=== PATIENT | male | born 1935 | race Caucasian/White ===

== ENCOUNTER → 2017-07-24 | Outpatient (CLI) | payer OTHER ==
[~2017-07-24] MED LIST: AMLO10 PO; AZELASTINE HCL6 ML BOTHEYES; CLOB.05TO TOP; CYAN500 SC; GAVILAX17 GM PO; HYDACE5 PO; HYDCHL12.5 PO; LEVFLO500 PO; LOSA50 PO; MELO7.5 PO; OMEP20ER PO; PRED20 PO; SILD25T PO; SILD50TA PO; TRAZ50 PO; ZOLP5 PO; [UNRECOGNIZED DRUG - OTHER] OP
== END | disposition home or self-care (01) ==
LOC: LAB 06:40 → LAB SHORT 06:40 → LAB FUT 07-23 14:45
DX: R05 Cough (principal)
CPT/HCPCS: 87070; 87205

== ENCOUNTER 2018-08-20 12:06 | Inpatient (IN) | payer OTHER ==
[~2018-08-20] VITALS: Ht 167.6 cm; Wt 57.1 kg
[~2018-08-20 12:06] MED LIST changes: +CYAN1000I IM; -CYAN500 SC; -LOSA50 PO; +LOSARTAN POTAS100 MG PO; -MELO7.5 PO; +Mobic15 MG PO; -OMEP20ER PO; +OMEPRAZOLE MAGN20 MG PO; -TRAZ50 PO
[2018-08-20] MEDS ORDERED: TRAZ50 PO (13:35)
[2018-08-20 13:51] LABS: BASOPHILS ABSOLUTE AUTO 0.02 K/mm3 (0.00-0.23); BASOPHILS PERCENT AUTO 0 % (0-2); EOSINOPHILS ABSOLUTE AUTO 0.08 K/mm3 (0.00-0.68); EOSINOPHILS PERCENT AUTO 1 % (0-6); Hemoglobin 13.3 g/dL (13.5-17.5); IMMATURE GRAN ABSOLUTE AUTO 0.03 K/mm3 (0.00-0.10); IMMATURE GRAN PERCENT AUTO 0 % (0-1); LYMPHOCYTES ABSOLUTE AUTO 0.84 K/mm3 (0.84-5.20); LYMPHOCYTES PERCENT AUTO 12 % (21-46); MONOCYTES PERCENT AUTO 7 % (4-13); Mean Corpuscular HGB Conc 33.3 g/dL (31.5-36.5); Mean Corpuscular Volume 93 fL (80-100); Mean Platelet Volume 10.4 fL (9.1-12.4); NEUTROPHILS ABSOLUTE AUTO 5.56 K/mm3 (1.96-9.15); NEUTROPHILS PERCENT AUTO 79 % (41-73); Platelet Count 160 K/mm3 (150-400); RDW Coefficient Variation 12.5 % (11.7-14.2); RDW Standard Deviation 43.2 fL (35.1-46.3); Red Blood Cell Count 4.29 M/mm3 (4.30-5.90); White Blood Cell Count 7.03 K/mm3 (4.00-11.30)
[2018-08-20 14:15] LABS: Alanine Aminotransfer (ALT/SGP 12 U/L (12-78); Albumin, Blood 3.8 g/dL (3.4-5.0); Albumin/Globulin Ratio 1.3 (0.8-1.8); Alk Phos 109 U/L (50-136); Anion Gap 8 mmol/L (6-16); Aspartate Aminotrans (AST/SGOT 20 U/L (12-37); Bilirubin, Total 0.7 mg/dL (0.1-1.0); Blood Urea Nitrogen 13 mg/dL (8-24); Bun/Creatinine Ratio 11.4 (12.0-20.0); CO2, Blood 25 mmol/L (21-32); Calcium, Blood 9.1 mg/dL (8.5-10.1); Chloride, Blood 110 mmol/L (98-108); Creatinine, Blood 1.14 mg/dL (0.60-1.20); Glomerular Filtration Rate >60 (60-); Glucose, Blood 91 mg/dL (70-99); Potassium, Blood 3.3 mmol/L (3.5-5.5); Sodium, Blood 143 mmol/L (136-145); Total Protein, Blood 6.8 g/dL (6.4-8.2)
--- NOTE | 2018-08-20 19:12 | NUR ---
ARRIVAL TO UNIT ARRIVAL TO UNIT AT APPROX 1700. THIS RN TOOK REPORT FROM ER NURSE AND THEN REPORTED TO DAVE RN TO ASSUME CARE. THIS RN REPOSITIONED PT'S LEFT LEG ON PILLOWS FOR COMFORT AND MEDICATED WITH IV DILAUDID X1. AT BEDSIDE FOR SUPPORT. ORIENTED TO ROOM AND CALL LIGHT.
[2018-08-21 04:17] LABS: Hematocrit 36.7 % (37.0-53.0); Mean Corpuscular HGB 30.9 pg (26.0-34.0); Mean Corpuscular HGB Conc 32.7 g/dL (31.5-36.5); Mean Corpuscular Volume 95 fL (80-100); Platelet Count 135 K/mm3 (150-400); RDW Coefficient Variation 12.4 % (11.7-14.2); RDW Standard Deviation 43.4 fL (35.1-46.3); Red Blood Cell Count 3.88 M/mm3 (4.30-5.90); White Blood Cell Count 7.06 K/mm3 (4.00-11.30)
[2018-08-21 04:43] LABS: Anion Gap 8 mmol/L (6-16); Blood Urea Nitrogen 12 mg/dL (8-24); Bun/Creatinine Ratio 11.9 (12.0-20.0); CO2, Blood 25 mmol/L (21-32); Calcium, Blood 8.6 mg/dL (8.5-10.1); Chloride, Blood 110 mmol/L (98-108); Creatinine, Blood 1.01 mg/dL (0.60-1.20); Glomerular Filtration Rate >60 (60-); Glucose, Blood 93 mg/dL (70-99); Potassium, Blood 3.8 mmol/L (3.5-5.5); Sodium, Blood 143 mmol/L (136-145)
--- NOTE | 2018-08-21 07:28 | NUR ---
SHIFT SUMMARY PT A&O X4 T/O SHIFT. NO ACUTE CHANGES. SPLINT WITH NAY TO LLE; ELEVATED; PAIN MANGED PER EMAR. PT DENIED PAIN AT REST T/O SHIFT. PT REPOSITIONED T/O SHIFT PT TOLERATED. SPLINT TO R MIDDLE FINGER. CALL LIGHT IN REACH; PT DEMONSTRATES USE. PT CALLED FOR URINAL. SIDE RAILS X3 AND BED ALARM FOR SAFETY. PT AT BEDSIDE THIS AM. REPORT GIVEN TO DAY SHIFT RN.
--- NOTE | 2018-08-21 09:46 | NUR ---
DR EASLEY HERE. FAMILY PRESENT.
--- NOTE | 2018-08-21 13:32 | NUR ---
DR AMANDA HERE TO SEE PT. FAMILY PRESENT.
--- NOTE | 2018-08-21 19:40 | NUR ---
SHIFT SUMMARY PT EATING AND DRINKING WITH ENC. PT BEEN ASSISTED WITH ADL'S PRN. ASHLEY GALDAMEZ IN TO SEE PT TODAY. PT BEEN REPOSITIONED, PT REPORTED COMF AT TIMES AND REPORTED DID NOT WANT TO BE REPOSITIONED. PT LLE WITH PILLOWS. FAMILY IN ROOM MOST OF DAY.
--- NOTE | 2018-08-22 04:32 | NUR ---
SHIFT SUMMARY: PT RESTING MOST OF SHIFT. PAIN MANAGED WITH 0.5MG OF DILAUDID. NAY WRAP TO LEG INTACT. PT ABLE TO WIGGLE TOES. CAP REFILL WNL. VOIDING IN URINAL. DC PO. PLAN FOR PT TO WORK WITH PHYSICAL THERAPY TODAY.
--- NOTE | 2018-08-22 18:16 | NUR ---
SUMMARY PATIENT REPORTS HE HAD A MUCH BETTER DAY TODAY COMPARED TO YESTERDAY. PATIENTS PAIN 8-10 WITH ACTIVITY AND 2-4 AT REST. PATIENT DENIES NEED FOR PAIN MED AT THIS TIME. PATIENT ANTICIPATES DISCHARGE TO SNF IF BED AVAILABLE TOMORROW. PATIENTS AT BEDSIDE MUCH OF SHIFT AND ATTENTIVE TO PATIENT.
--- NOTE | 2018-08-23 11:37 | NUR ---
TRANSPORT ARRANGED FOR 1330 TO [facility]. NOTIFIED PATIENT AND HIS OF TRANSFER TIME
--- NOTE | 2018-08-23 12:48 | NUR ---
PATIENT MEDICATED WITH ZOFRAN PER REQUEST. PATIENT STATES HE BELIEVES HE IS A BIT NAUSEATED HE IS PASSING MORE GAS AND FEELS LIKE HE WILL HAVE A BM SOON PATIENT DECLINES PRUNE JUICE OR FURTHER BOWEL REGIME AT THIS TIME
--- NOTE | 2018-08-23 13:18 | NUR ---
REPORT PHONRD TO LAURIE AT [facility]
--- NOTE | 2018-08-23 15:17 | NUR ---
discharged with [facility] via wheelchair to transport to [facility] rehab patients present at time of transfer
--- NOTE | 2018-08-23 16:49 | NUR ---
RECEIVED PHONE CALL FROM [facility] STATING THAT A HARD RX IS NEEDEDFOR PATIENTS AMBIEN. DISCHARGING PHYSICIAN MAY CALL IN RX TO PHONE [phone]. SPO[address] EASLEY WHO WILL PHONE IN PRESCRIPTION
== END 2018-08-23 15:15 | DRG 534 ==
LOC: ER 12:06 → SURS 14:19
PROVIDERS: Emergency Medicine; ADMIT Hospitalist
DX: S72.455A Nondisplaced supracondylar fracture without intracondylar extension of lower end of left femur, initial encounter for closed fracture (principal); M97.12XA Periprosthetic fracture around internal prosthetic left knee joint, initial encounter; I10 Essential (primary) hypertension; W10.9XXA Fall (on) (from) unspecified stairs and steps, initial encounter; K21.9 Gastro-esophageal reflux disease without esophagitis; M19.90 Unspecified osteoarthritis, unspecified site; K59.00 Constipation, unspecified; G47.00 Insomnia, unspecified; Z87.891 Personal history of nicotine dependence
CPT/HCPCS: 29505; 73140; 73560-LT; 80048; 80053; 85025; 85027; 93005; 93010; 96374-59; 96376-59; 97110; 97162; 97166; 97530; 99285-25; A9270-GY; J1170; J2405; J3480

== ENCOUNTER → 2019-10-20 | Outpatient (CLI) | payer OTHER ==
[~2019-10-20] MED LIST changes: +TRAZ50 PO
== END | disposition home or self-care (01) ==
LOC: PLD 12:17 → LAB SHORT 12:17
DX: C44.329 Squamous cell carcinoma of skin of other parts of face (principal)
CPT/HCPCS: 88305

== ENCOUNTER 2020-03-08 00:19 | Inpatient (IN) | payer OTHER ==
[~2020-03-08] VITALS: Ht 172.7 cm; Wt 60.5 kg
[2020-03-08 02:35] LABS: BASOPHILS ABSOLUTE AUTO 0.05 K/mm3 (0.00-0.23); BASOPHILS PERCENT AUTO 1 % (0-2); EOSINOPHILS ABSOLUTE AUTO 0.13 K/mm3 (0.00-0.68); EOSINOPHILS PERCENT AUTO 1 % (0-6); Hematocrit 41.6 % (37.0-53.0); Hemoglobin 13.2 g/dL (13.5-17.5); IMMATURE GRAN ABSOLUTE AUTO 0.02 K/mm3 (0.00-0.10); IMMATURE GRAN PERCENT AUTO 0 % (0-1); LYMPHOCYTES ABSOLUTE AUTO 1.72 K/mm3 (0.84-5.20); LYMPHOCYTES PERCENT AUTO 18 % (21-46); MONOCYTES PERCENT AUTO 8 % (4-13); Mean Corpuscular HGB 30.8 pg (26.0-34.0); Mean Corpuscular HGB Conc 31.7 g/dL (31.5-36.5); Mean Corpuscular Volume 97 fL (80-100); Mean Platelet Volume 10.1 fL (9.1-12.4); NEUTROPHILS PERCENT AUTO 72 % (41-73); Platelet Count 191 K/mm3 (150-400); RDW Coefficient Variation 13.7 % (11.7-14.2); RDW Standard Deviation 49.1 fL (35.1-46.3); Red Blood Cell Count 4.29 M/mm3 (4.30-5.90); White Blood Cell Count 9.82 K/mm3 (4.00-11.30)
[2020-03-08 02:55] LABS: Albumin, Blood 3.5 g/dL (3.4-5.0); Albumin/Globulin Ratio 1.2 (0.8-1.8); Bilirubin, Total 0.5 mg/dL (0.1-1.0); Bun/Creatinine Ratio 14.4 (12.0-20.0); Calcium, Blood 9.5 mg/dL (8.5-10.1); Creatinine, Blood 4.94 mg/dL (0.60-1.20); Globulin, Blood 2.9 g/dL (2.2-4.0); Magnesium, Blood 2.6 mg/dL (1.6-2.4); Potassium, Blood 5.7 mmol/L (3.5-5.5); Total Protein, Blood 6.4 g/dL (6.4-8.2); Troponin I 0.021 ng/mL (0.000-0.040)
[2020-03-08 10:00] LABS: Source, Urine Catheter
[2020-03-08 10:13] LABS: Appearance, Urine Hazy (Clear); Bacteria Rare /hpf; Bilirubin, Urine Neg (Neg); Blood, Urine 1+ (Neg); Color, Urine Yellow (P-Yellow); Glucose Qualitative, Urine Neg (Neg); Ketones, Urine 2+ (Neg); Leukocyte Esterase, Urine 1+ (Neg); Nitrite, Urine Neg (Neg); Protein, Urine Neg (Neg); Red Blood Cells, Urine 0-2 /hpf (0-2); Squamous Epithelial Cells Not Seen /hpf (Few); Urobilinogen, Urine NORM (Normal); White Blood Cells, Urine 0-2 /hpf (0-5)
[2020-03-08 13:07] LABS: Anion Gap 6 mmol/L (6-16); Blood Urea Nitrogen 63 mg/dL (8-24); Bun/Creatinine Ratio 15.3 (12.0-20.0); CO2, Blood 24 mmol/L (21-32); Calcium, Blood 8.5 mg/dL (8.5-10.1); Chloride, Blood 109 mmol/L (98-108); Creatinine, Blood 4.12 mg/dL (0.60-1.20); Glomerular Filtration Rate 15 (60-); Glucose, Blood 111 mg/dL (70-99); Phosphorus, Blood 5.2 mg/dL (2.5-4.9); Potassium, Blood 5.8 mmol/L (3.5-5.5); Sodium, Blood 139 mmol/L (136-145)
[2020-03-08 18:29] LABS: Bun/Creatinine Ratio 15.1 (12.0-20.0); Calcium, Blood 8.3 mg/dL (8.5-10.1); Creatinine, Blood 3.9 mg/dL (0.60-1.20); Potassium, Blood 5.5 mmol/L (3.5-5.5)
[2020-03-09 04:11] LABS: Bun/Creatinine Ratio 16.1 (12.0-20.0); Calcium, Blood 8.2 mg/dL (8.5-10.1); Creatinine, Blood 3.53 mg/dL (0.60-1.20); Potassium, Blood 5.9 mmol/L (3.5-5.5)
[2020-03-09 09:14] LABS: Bun/Creatinine Ratio 15.7 (12.0-20.0); Calcium, Blood 8.4 mg/dL (8.5-10.1); Creatinine, Blood 3.37 mg/dL (0.60-1.20); Potassium, Blood 5.4 mmol/L (3.5-5.5)
[2020-03-10 04:11] LABS: Hematocrit 34.8 % (37.0-53.0); Hemoglobin 10.9 g/dL (13.5-17.5)
[2020-03-10 04:43] LABS: Albumin, Blood 2.3 g/dL (3.4-5.0); Anion Gap 4 mmol/L (6-16); Blood Urea Nitrogen 43 mg/dL (8-24); Bun/Creatinine Ratio 15.3 (12.0-20.0); CO2, Blood 27 mmol/L (21-32); Chloride, Blood 113 mmol/L (98-108); Creatinine, Blood 2.81 mg/dL (0.60-1.20); Glomerular Filtration Rate 23 (60-); Glucose, Blood 85 mg/dL (70-99); Phosphorus, Blood 3.2 mg/dL (2.5-4.9); Potassium, Blood 5.2 mmol/L (3.5-5.5); Sodium, Blood 144 mmol/L (136-145)
[2020-03-11 04:25] LABS: BASOPHILS ABSOLUTE AUTO 0.03 K/mm3 (0.00-0.23); BASOPHILS PERCENT AUTO 1 % (0-2); EOSINOPHILS ABSOLUTE AUTO 0.19 K/mm3 (0.00-0.68); EOSINOPHILS PERCENT AUTO 3 % (0-6); Hematocrit 36.3 % (37.0-53.0); Hemoglobin 11.3 g/dL (13.5-17.5); IMMATURE GRAN ABSOLUTE AUTO 0.01 K/mm3 (0.00-0.10); IMMATURE GRAN PERCENT AUTO 0 % (0-1); LYMPHOCYTES ABSOLUTE AUTO 1.27 K/mm3 (0.84-5.20); LYMPHOCYTES PERCENT AUTO 22 % (21-46); MONOCYTES ABSOLUTE AUTO 0.55 K/mm3 (0.16-1.47); MONOCYTES PERCENT AUTO 9 % (4-13); Mean Corpuscular HGB 30.7 pg (26.0-34.0); Mean Corpuscular HGB Conc 31.1 g/dL (31.5-36.5); Mean Corpuscular Volume 99 fL (80-100); Mean Platelet Volume 10.5 fL (9.1-12.4); NEUTROPHILS ABSOLUTE AUTO 3.79 K/mm3 (1.96-9.15); NEUTROPHILS PERCENT AUTO 65 % (41-73); Platelet Count 124 K/mm3 (150-400); RDW Standard Deviation 51.1 fL (35.1-46.3); Red Blood Cell Count 3.68 M/mm3 (4.30-5.90); White Blood Cell Count 5.84 K/mm3 (4.00-11.30)
[2020-03-11 04:49] LABS: Albumin, Blood 2.4 g/dL (3.4-5.0); Anion Gap 6 mmol/L (6-16); Blood Urea Nitrogen 35 mg/dL (8-24); Bun/Creatinine Ratio 14.8 (12.0-20.0); CO2, Blood 26 mmol/L (21-32); Calcium, Blood 8.4 mg/dL (8.5-10.1); Chloride, Blood 111 mmol/L (98-108); Creatinine, Blood 2.36 mg/dL (0.60-1.20); Glomerular Filtration Rate 28 (60-); Glucose, Blood 78 mg/dL (70-99); Magnesium, Blood 1.6 mg/dL (1.6-2.4); Potassium, Blood 5.3 mmol/L (3.5-5.5); Sodium, Blood 143 mmol/L (136-145)
[2020-03-11] MEDS ORDERED: CYCL10 PO (13:46)
[2020-03-11] MEDS ORDERED: MELATONIN5 M1 PO (13:47)
[2020-03-11] MEDS ORDERED: LIDOCAINE1 EAC1 TOP (13:47)
[2020-03-11] MEDS ORDERED: MIDO5 PO (13:48)
== END 2020-03-11 15:41 | disposition home health service (06) | DRG 682 ==
LOC: ER 00:19 → PCU 05:05
PROVIDERS: Emergency Medicine; Internal Medicine; ADMIT Family Medicine
DX: N17.0 Acute kidney failure with tubular necrosis (principal); E43 Unspecified severe protein-calorie malnutrition; Z68.1 Body mass index [BMI] 19.9 or less, adult; J44.9 Chronic obstructive pulmonary disease, unspecified; Z66 Do not resuscitate; I95.9 Hypotension, unspecified; E87.5 Hyperkalemia; E83.41 Hypermagnesemia; I10 Essential (primary) hypertension; M19.90 Unspecified osteoarthritis, unspecified site; K21.9 Gastro-esophageal reflux disease without esophagitis; G47.00 Insomnia, unspecified; D64.9 Anemia, unspecified; K29.80 Duodenitis without bleeding; Z79.1 Long term (current) use of non-steroidal anti-inflammatories (NSAID); Z87.891 Personal history of nicotine dependence
CPT/HCPCS: 36415; 71045; 74018; 74176; 76770; 80048; 80053; 80069; 81001; 83605; 83690; 83735; 83880; 84443; 84484; 85014; 85018; 85025; 87086; 93005; 93010; 93306; 93975; 96361; 96374; 97110; 97116; 97162; 97165; 97530; 99285-25; J1644; J1815; J2060; J7030; J7040; J7120; J7799

== ENCOUNTER 2020-03-14 15:41 | Emergency (ER) | payer OTHER ==
[~2020-03-14] VITALS: Ht 170.2 cm; Wt 54.4 kg
[~2020-03-14 15:41] MED LIST changes: +CYCL10 PO; +LIDOCAINE1 EAC1 TOP; +MELATONIN5 M1 PO; +MIDO5 PO
[2020-03-14 17:02] LABS: Albumin, Blood 3.2 g/dL (3.4-5.0); Bilirubin, Total 0.3 mg/dL (0.1-1.0); Bun/Creatinine Ratio 12.5 (12.0-20.0); Creatinine, Blood 1.92 mg/dL (0.60-1.20); Globulin, Blood 3.2 g/dL (2.2-4.0); Potassium, Blood 6.3 mmol/L (3.5-5.5); Total Protein, Blood 6.4 g/dL (6.4-8.2)
[2020-03-14 17:03] LABS: BASOPHILS ABSOLUTE AUTO 0.03 K/mm3 (0.00-0.23); BASOPHILS PERCENT AUTO 0 % (0-2); EOSINOPHILS ABSOLUTE AUTO 0.18 K/mm3 (0.00-0.68); EOSINOPHILS PERCENT AUTO 3 % (0-6); Hematocrit 40.1 % (37.0-53.0); Hemoglobin 12.5 g/dL (13.5-17.5); IMMATURE GRAN ABSOLUTE AUTO 0.03 K/mm3 (0.00-0.10); IMMATURE GRAN PERCENT AUTO 0 % (0-1); LYMPHOCYTES ABSOLUTE AUTO 0.87 K/mm3 (0.84-5.20); LYMPHOCYTES PERCENT AUTO 13 % (21-46); MONOCYTES ABSOLUTE AUTO 0.43 K/mm3 (0.16-1.47); MONOCYTES PERCENT AUTO 6 % (4-13); Mean Corpuscular HGB 30.9 pg (26.0-34.0); Mean Corpuscular HGB Conc 31.2 g/dL (31.5-36.5); Mean Corpuscular Volume 99 fL (80-100); Mean Platelet Volume 10.4 fL (9.1-12.4); NEUTROPHILS ABSOLUTE AUTO 5.35 K/mm3 (1.96-9.15); NEUTROPHILS PERCENT AUTO 78 % (41-73); Platelet Count 158 K/mm3 (150-400); RDW Coefficient Variation 13.9 % (11.7-14.2); RDW Standard Deviation 50.8 fL (35.1-46.3); Red Blood Cell Count 4.05 M/mm3 (4.30-5.90); White Blood Cell Count 6.89 K/mm3 (4.00-11.30)
== END 2020-03-14 18:07 | disposition home or self-care (01) ==
LOC: ER 15:41
PROVIDERS: Physician Assistant
DX: I12.9 Hypertensive chronic kidney disease with stage 1 through stage 4 chronic kidney disease, or unspecified chronic kidney disease (principal); N18.9 Chronic kidney disease, unspecified; E87.5 Hyperkalemia; K21.9 Gastro-esophageal reflux disease without esophagitis; Z87.891 Personal history of nicotine dependence; Z79.899 Other long term (current) drug therapy; Z88.8 Allergy status to other drugs, medicaments and biological substances; Z88.0 Allergy status to penicillin
CPT/HCPCS: 36415; 80053; 85025; 93005; 93010; 99283-25

== ENCOUNTER → 2020-03-15 | Outpatient (CLI) | payer OTHER ==
[2020-03-15 14:42] LABS: BASOPHILS ABSOLUTE AUTO 0.04 K/mm3 (0.00-0.23); BASOPHILS PERCENT AUTO 1 % (0-2); EOSINOPHILS ABSOLUTE AUTO 0.24 K/mm3 (0.00-0.68); EOSINOPHILS PERCENT AUTO 3 % (0-6); Hematocrit 42.1 % (37.0-53.0); IMMATURE GRAN ABSOLUTE AUTO 0.02 K/mm3 (0.00-0.10); IMMATURE GRAN PERCENT AUTO 0 % (0-1); LYMPHOCYTES ABSOLUTE AUTO 1.07 K/mm3 (0.84-5.20); LYMPHOCYTES PERCENT AUTO 15 % (21-46); MONOCYTES ABSOLUTE AUTO 0.47 K/mm3 (0.16-1.47); MONOCYTES PERCENT AUTO 7 % (4-13); Mean Corpuscular HGB 30.5 pg (26.0-34.0); Mean Corpuscular HGB Conc 30.9 g/dL (31.5-36.5); Mean Corpuscular Volume 99 fL (80-100); Mean Platelet Volume 10.7 fL (9.1-12.4); NEUTROPHILS ABSOLUTE AUTO 5.13 K/mm3 (1.96-9.15); NEUTROPHILS PERCENT AUTO 74 % (41-73); Platelet Count 177 K/mm3 (150-400); RDW Standard Deviation 51.6 fL (35.1-46.3); Red Blood Cell Count 4.26 M/mm3 (4.30-5.90); White Blood Cell Count 6.97 K/mm3 (4.00-11.30)
[2020-03-15 15:12] LABS: Alanine Aminotransfer (ALT/SGP 16 U/L (12-78); Albumin, Blood 3.6 g/dL (3.4-5.0); Albumin/Globulin Ratio 1.4 (0.8-1.8); Alk Phos 101 U/L (50-136); Anion Gap 10 mmol/L (6-16); Aspartate Aminotrans (AST/SGOT 21 U/L (12-37); Bilirubin, Direct 0.1 mg/dL (0.0-0.3); Bilirubin, Indirect 0.4 mg/dL (0.1-0.7); Bilirubin, Total 0.5 mg/dL (0.1-1.0); Blood Urea Nitrogen 21 mg/dL (8-24); Bun/Creatinine Ratio 10.3 (12.0-20.0); CHOL/HDL RATIO 2.9; CO2, Blood 23 mmol/L (21-32); Calcium, Blood 9.7 mg/dL (8.5-10.1); Chloride, Blood 108 mmol/L (98-108); Cholesterol 159 mg/dL (50-200); Creatinine, Blood 2.03 mg/dL (0.60-1.20); Free Thyroxine 1.09 ng/dL (0.70-1.60); Globulin, Blood 2.6 g/dL (2.2-4.0); Glomerular Filtration Rate 33 (60-); Glucose, Blood 88 mg/dL (70-99); HDL Cholesterol 55 mg/dL (>39); LDL/HDL RATIO 1.3; Low Density Lipoprotein Chol 73 mg/dL (0-110); Phosphorus, Blood 3.8 mg/dL (2.5-4.9); Potassium, Blood 5.5 mmol/L (3.5-5.5); Sodium, Blood 141 mmol/L (136-145); Total Protein, Blood 6.2 g/dL (6.4-8.2); Triglycerides 155 mg/dL (30-160); Uric Acid, Blood 2.9 mg/dL (3.5-7.2); Very Low Density Lipoprot Chol 31 mg/dL (6-32)
[2020-03-15 15:32] LABS: Triiodothyronine, Free 2.23 pg/mL (2.18-3.98)
[2020-03-15 16:34] LABS: Percent Saturation 41.4 % (20.0-50.0)
== END | disposition home or self-care (01) ==
LOC: LAB 13:22 → LAB SHORT 13:22
PROVIDERS: Internal Medicine Nephrology
DX: N18.30 Chronic kidney disease, stage 3 unspecified (principal); D63.1 Anemia in chronic kidney disease; N25.81 Secondary hyperparathyroidism of renal origin; E55.9 Vitamin D deficiency, unspecified; E78.00 Pure hypercholesterolemia, unspecified; D50.9 Iron deficiency anemia, unspecified; D51.8 Other vitamin B12 deficiency anemias; D52.8 Other folate deficiency anemias; R80.9 Proteinuria, unspecified; R76.9 Abnormal immunological finding in serum, unspecified; R94.5 Abnormal results of liver function studies; R94.6 Abnormal results of thyroid function studies; M10.9 Gout, unspecified
CPT/HCPCS: 80053; 80061; 82248; 82306; 82607; 82728; 82746; 83540; 83550; 84100; 84439; 84443; 84481; 84550; 85025; 86038

== ENCOUNTER → 2020-03-24 | Outpatient (CLI) | payer OTHER ==
[~2020-03-24] MED LIST changes: +ALLO300 PO; -AMLO10 PO; +AMLO5 PO; -CYAN1000I IM; +MIRALAX17 GM PO; +MIRTAZAPINE7.5 M1 PO; +VASCEPA1 G1 PO; +VITAMIN D325 MC3 PO; +Vitamin B-121000 MCG PO
[2020-03-24 10:28] LABS: Creatinine Urine 34.5 mg/dL (27.00-270.00); Microalbumin, Urine Quant. 9.86 mg/L (0.000-20.000); Protein, Urine Quantitative 11.3 mg/dL (0.0-11.9)
== END | disposition home or self-care (01) ==
LOC: LAB 08:00 → LAB SHORT 08:00 → LAB FUT 03-22 10:35
PROVIDERS: Internal Medicine Nephrology
DX: N18.30 Chronic kidney disease, stage 3 unspecified (principal); D63.1 Anemia in chronic kidney disease; N25.81 Secondary hyperparathyroidism of renal origin; E55.9 Vitamin D deficiency, unspecified; E78.00 Pure hypercholesterolemia, unspecified; E29.1 Testicular hypofunction; R80.9 Proteinuria, unspecified; R76.9 Abnormal immunological finding in serum, unspecified; R94.5 Abnormal results of liver function studies; R94.6 Abnormal results of thyroid function studies
CPT/HCPCS: 81050; 82043; 82570; 84156

== ENCOUNTER 2020-05-17 13:23 | Emergency (ER) | payer OTHER ==
[~2020-05-17] VITALS: Ht 172.7 cm; Wt 49.0 kg
[~2020-05-17 13:23] MED LIST changes: -ALLO300 PO; -AMLO5 PO; -MIRALAX17 GM PO; -MIRTAZAPINE7.5 M1 PO; -OMEPRAZOLE MAGN20 MG PO; -TRAZ50 PO; -VASCEPA1 G1 PO; -VITAMIN D325 MC3 PO; -Vitamin B-121000 MCG PO
[2020-05-17 13:52] LABS: BASOPHILS ABSOLUTE AUTO 0.03 K/mm3 (0.00-0.23); BASOPHILS PERCENT AUTO 0 % (0-2); EOSINOPHILS ABSOLUTE AUTO 0.25 K/mm3 (0.00-0.68); EOSINOPHILS PERCENT AUTO 3 % (0-6); Hematocrit 41.3 % (37.0-53.0); IMMATURE GRAN ABSOLUTE AUTO 0.03 K/mm3 (0.00-0.10); IMMATURE GRAN PERCENT AUTO 0 % (0-1); LYMPHOCYTES ABSOLUTE AUTO 1.82 K/mm3 (0.84-5.20); LYMPHOCYTES PERCENT AUTO 25 % (21-46); MONOCYTES ABSOLUTE AUTO 0.65 K/mm3 (0.16-1.47); MONOCYTES PERCENT AUTO 9 % (4-13); Mean Corpuscular HGB 31.3 pg (26.0-34.0); Mean Corpuscular HGB Conc 31.5 g/dL (31.5-36.5); Mean Corpuscular Volume 100 fL (80-100); Mean Platelet Volume 9.9 fL (9.1-12.4); NEUTROPHILS ABSOLUTE AUTO 4.65 K/mm3 (1.96-9.15); NEUTROPHILS PERCENT AUTO 63 % (41-73); Platelet Count 175 K/mm3 (150-400); RDW Coefficient Variation 13.1 % (11.7-14.2); RDW Standard Deviation 48.3 fL (35.1-46.3); Red Blood Cell Count 4.15 M/mm3 (4.30-5.90); White Blood Cell Count 7.43 K/mm3 (4.00-11.30)
[2020-05-17] MEDS ORDERED: MIRALAX17 GM PO ×2 (13:58→16:23)
[2020-05-17 14:05] LABS: International Normalized Ratio 1.01; Prothrombin Time Results 10.8 Sec (9.7-11.5)
[2020-05-17 14:26] LABS: Albumin, Blood 3.4 g/dL (3.4-5.0); Bilirubin, Total 0.2 mg/dL (0.1-1.0); Bun/Creatinine Ratio 18.5 (12.0-20.0); Calcium, Blood 9.5 mg/dL (8.5-10.1); Creatinine, Blood 1.24 mg/dL (0.60-1.20); Globulin, Blood 3.4 g/dL (2.2-4.0); Potassium, Blood 4.5 mmol/L (3.5-5.5); Total Protein, Blood 6.8 g/dL (6.4-8.2)
[2020-05-17] MEDS ORDERED: MIRTAZAPINE7.5 M1 PO (15:43)
[2020-05-17] MEDS ORDERED: OMEPRAZOLE MAGN20 MG PO (15:44)
[2020-05-17] MEDS ORDERED: ZOLP5 PO (15:45)
[2020-05-17] MEDS ORDERED: AMLO5 PO (15:45)
[2020-05-17] MEDS ORDERED: TRAZ50 PO (15:45)
[2020-05-17] MEDS ORDERED: VASCEPA1 G1 PO (15:46)
[2020-05-17] MEDS ORDERED: Vitamin B-121000 MCG PO (15:47)
[2020-05-17] MEDS ORDERED: ALLO300 PO (15:47)
[2020-05-17] MEDS ORDERED: VITAMIN D325 MC3 PO (15:47)
== END 2020-05-17 16:43 | disposition home or self-care (01) ==
LOC: ER 13:23
PROVIDERS: Emergency Medicine
DX: G62.9 Polyneuropathy, unspecified (principal); I10 Essential (primary) hypertension; R47.1 Dysarthria and anarthria; R29.810 Facial weakness; R47.9 Unspecified speech disturbances; Z79.899 Other long term (current) drug therapy; Z88.0 Allergy status to penicillin; Z88.5 Allergy status to narcotic agent
CPT/HCPCS: 36415; 70450; 80053; 85025; 85610; 85730; 93005; 93010; 99285-25

== ENCOUNTER → 2020-06-07 | Outpatient (CLI) | payer OTHER ==
[~2020-06-07] MED LIST changes: +ALLO300 PO; +AMLO5 PO; +MIRALAX17 GM PO; +MIRTAZAPINE7.5 M1 PO; +OMEPRAZOLE MAGN20 MG PO; +TRAZ50 PO; +VASCEPA1 G1 PO; +VITAMIN D325 MC3 PO; +Vitamin B-121000 MCG PO
[2020-06-07 19:48] LABS: Appearance, Urine Clear (Clear); Bilirubin, Urine Neg (Neg); Blood, Urine 1+ (Neg); Color, Urine Yellow (P-Yellow); Glucose Qualitative, Urine Neg (Neg); Ketones, Urine Neg (Neg); Leukocyte Esterase, Urine Neg (Neg); Nitrite, Urine Neg (Neg); Protein, Urine Neg (Neg); Urobilinogen, Urine NORM (Normal)
[2020-06-07 19:59] LABS: Bacteria Rare /hpf; Red Blood Cells, Urine 0-2 /hpf (0-2); Squamous Epithelial Cells Rare /hpf (Few); White Blood Cells, Urine Rare /hpf (0-5)
== END | disposition home or self-care (01) ==
LOC: LAB 15:50 → LAB SHORT 15:50
PROVIDERS: Internal Medicine
DX: N18.9 Chronic kidney disease, unspecified (principal); R41.0 Disorientation, unspecified; N39.0 Urinary tract infection, site not specified
CPT/HCPCS: 81001

== ENCOUNTER 2020-11-23 09:21 | Emergency (ER) | payer OTHER ==
[~2020-11-23] VITALS: Ht 167.6 cm; Wt 54.4 kg
[2020-11-23 09:52] LABS: BASOPHILS ABSOLUTE AUTO 0.05 K/mm3 (0.00-0.23); BASOPHILS PERCENT AUTO 1 % (0-2); EOSINOPHILS ABSOLUTE AUTO 0.17 K/mm3 (0.00-0.68); EOSINOPHILS PERCENT AUTO 2 % (0-6); Hemoglobin 12.7 g/dL (13.5-17.5); IMMATURE GRAN ABSOLUTE AUTO 0.07 K/mm3 (0.00-0.10); IMMATURE GRAN PERCENT AUTO 1 % (0-1); LYMPHOCYTES ABSOLUTE AUTO 0.98 K/mm3 (0.84-5.20); LYMPHOCYTES PERCENT AUTO 10 % (21-46); MONOCYTES ABSOLUTE AUTO 0.54 K/mm3 (0.16-1.47); MONOCYTES PERCENT AUTO 6 % (4-13); Mean Corpuscular HGB 29.9 pg (26.0-34.0); Mean Corpuscular Volume 97 fL (80-100); Mean Platelet Volume 9.7 fL (9.1-12.4); NEUTROPHILS ABSOLUTE AUTO 7.78 K/mm3 (1.96-9.15); NEUTROPHILS PERCENT AUTO 81 % (41-73); Platelet Count 201 K/mm3 (150-400); RDW Coefficient Variation 13.4 % (11.7-14.2); RDW Standard Deviation 47.8 fL (35.1-46.3); Red Blood Cell Count 4.25 M/mm3 (4.30-5.90); White Blood Cell Count 9.59 K/mm3 (4.00-11.30)
[2020-11-23 10:25] LABS: Source, Urine Clean Catch
[2020-11-23 10:26] LABS: Anion Gap 5 mmol/L (6-16); Blood Urea Nitrogen 15 mg/dL (8-24); Bun/Creatinine Ratio 13.2 (12.0-20.0); CO2, Blood 29 mmol/L (21-32); Calcium, Blood 9.5 mg/dL (8.5-10.1); Chloride, Blood 107 mmol/L (98-108); Creatinine, Blood 1.14 mg/dL (0.60-1.20); Glomerular Filtration Rate >60 (60-); Glucose, Blood 91 mg/dL (70-99); Potassium, Blood 4.5 mmol/L (3.5-5.5); Sodium, Blood 141 mmol/L (136-145)
[2020-11-23 10:51] LABS: Appearance, Urine Clear (Clear); Bilirubin, Urine Neg (Neg); Blood, Urine Neg (Neg); Color, Urine Yellow (P-Yellow); Glucose Qualitative, Urine Neg (Neg); Ketones, Urine Neg (Neg); Leukocyte Esterase, Urine Neg (Neg); Nitrite, Urine Neg (Neg); Protein, Urine Neg (Neg); Specific Gravity, Urine 1.005 (1.003-1.022); Urobilinogen, Urine NORM (Normal)
[2020-11-23] MEDS ORDERED: ERYT.5TO BOTHEYES (15:01)
== END 2020-11-23 15:14 | disposition home or self-care (01) ==
LOC: ER 09:21
PROVIDERS: Student in an Organized Health Care Education/Training Program
DX: R41.0 Disorientation, unspecified (principal); E86.0 Dehydration; I10 Essential (primary) hypertension; K21.9 Gastro-esophageal reflux disease without esophagitis; Z88.0 Allergy status to penicillin; Z88.8 Allergy status to other drugs, medicaments and biological substances; Z79.899 Other long term (current) drug therapy
CPT/HCPCS: 36415; 51798; 70450; 71046; 80048; 81003; 84443; 85025; 93005; 93010; 99285-25; J7030

== ENCOUNTER 2021-09-29 23:32 | Inpatient (IN) | payer OTHER ==
[~2021-09-29] VITALS: Ht 180.3 cm; Wt 39.5 kg
[~2021-09-29 23:32] MED LIST changes: +ERYT.5TO BOTHEYES
[2021-09-30] MEDS ORDERED: Aspir 8181 MG PO (00:11)
[2021-09-30] MEDS ORDERED: VITAMIN D31000 UNI1 PO (00:12)
[2021-09-30 00:13] LABS: BASOPHILS ABSOLUTE AUTO 0.03 K/mm3 (0.00-0.23); BASOPHILS PERCENT AUTO 0 % (0-2); EOSINOPHILS PERCENT AUTO 0 % (0-6); Hematocrit 44.9 % (37.0-53.0); Hemoglobin 14.2 g/dL (13.5-17.5); IMMATURE GRAN ABSOLUTE AUTO 0.13 K/mm3 (0.00-0.10); IMMATURE GRAN PERCENT AUTO 1 % (0-1); LYMPHOCYTES ABSOLUTE AUTO 0.42 K/mm3 (0.84-5.20); LYMPHOCYTES PERCENT AUTO 3 % (21-46); MONOCYTES ABSOLUTE AUTO 1.24 K/mm3 (0.16-1.47); MONOCYTES PERCENT AUTO 8 % (4-13); Mean Corpuscular HGB 31.8 pg (26.0-34.0); Mean Corpuscular HGB Conc 31.6 g/dL (31.5-36.5); Mean Corpuscular Volume 100 fL (80-100); NEUTROPHILS ABSOLUTE AUTO 14.69 K/mm3 (1.96-9.15); NEUTROPHILS PERCENT AUTO 89 % (41-73); Platelet Count 179 K/mm3 (150-400); RDW Coefficient Variation 13.4 % (11.7-14.2); RDW Standard Deviation 50.2 fL (35.1-46.3); Red Blood Cell Count 4.47 M/mm3 (4.30-5.90); White Blood Cell Count 16.51 K/mm3 (4.00-11.30)
[2021-09-30] MEDS ORDERED: ACETAMINOPHEN500 M2 PO (00:13)
[2021-09-30 01:15] LABS: Albumin, Blood 2.6 g/dL (3.4-5.0); Albumin/Globulin Ratio 0.7 (0.8-1.8); Bilirubin, Total 0.5 mg/dL (0.1-1.0); Bun/Creatinine Ratio 32.1 (12.0-20.0); Calcium, Blood 9.1 mg/dL (8.5-10.1); Creatinine, Blood 1.34 mg/dL (0.60-1.20); Globulin, Blood 3.9 g/dL (2.2-4.0); Total Protein, Blood 6.5 g/dL (6.4-8.2)
--- NOTE | 2021-09-30 06:13 | NUR ---
Shift Summary: Admitted PCU status. Fraile, cachetic, with weight 39.5kg. Lives at [place], was Dx with covid 10-14 days ago. Decrease in LOC, opens yes and does try to speak but struggles to get words out due to paralysis of vocal cords and larynx. 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 WAshed them best I could but tender for the patient. No teeth, mouth breather. O2 at 2 liters Sats 100%. Resp 20's. No cough noted. Lung sounds diminished t/o. Hx of dysphagia. Denies pain. HR sinus in the 80's pulses weak. Abdomin is sucken to the back bone, ribs are severely visable anteriorally and posterior. Poor appetite, almost absent BT, small smear of brown stool cleansed off bottom. ER attempted nobles but was not able to get one r/t enlarged prostate. Attends placed. Skin tears noted to left arm, pics were taken and dressing applied. IVF started. Orders for antibotics and antiviral. call light given, bed in low position.
[2021-09-30 07:02] LABS: BASOPHILS ABSOLUTE AUTO 0.02 K/mm3 (0.00-0.23); BASOPHILS PERCENT AUTO 0 % (0-2); EOSINOPHILS PERCENT AUTO 0 % (0-6); Hematocrit 42.8 % (37.0-53.0); Hemoglobin 13.3 g/dL (13.5-17.5); IMMATURE GRAN ABSOLUTE AUTO 0.09 K/mm3 (0.00-0.10); IMMATURE GRAN PERCENT AUTO 1 % (0-1); LYMPHOCYTES ABSOLUTE AUTO 0.31 K/mm3 (0.84-5.20); LYMPHOCYTES PERCENT AUTO 2 % (21-46); MONOCYTES PERCENT AUTO 1 % (4-13); Mean Corpuscular HGB 31.5 pg (26.0-34.0); Mean Corpuscular HGB Conc 31.1 g/dL (31.5-36.5); Mean Corpuscular Volume 101 fL (80-100); Mean Platelet Volume 10.9 fL (9.1-12.4); NEUTROPHILS ABSOLUTE AUTO 14.18 K/mm3 (1.96-9.15); NEUTROPHILS PERCENT AUTO 96 % (41-73); Platelet Count 158 K/mm3 (150-400); RDW Coefficient Variation 13.5 % (11.7-14.2); RDW Standard Deviation 50.4 fL (35.1-46.3); Red Blood Cell Count 4.22 M/mm3 (4.30-5.90)
[2021-09-30 07:22] LABS: Albumin, Blood 2.8 g/dL (3.4-5.0); Albumin/Globulin Ratio 0.7 (0.8-1.8); Bilirubin, Total 0.4 mg/dL (0.1-1.0); Bun/Creatinine Ratio 31.6 (12.0-20.0); Calcium, Blood 10.1 mg/dL (8.5-10.1); Creatinine, Blood 1.52 mg/dL (0.60-1.20); Globulin, Blood 4.1 g/dL (2.2-4.0); Potassium, Blood 4.7 mmol/L (3.5-5.5); Total Protein, Blood 6.9 g/dL (6.4-8.2)
[2021-09-30 15:00] LABS: Source, Urine Straight Cath
[2021-09-30 15:04] LABS: Appearance, Urine Hazy (Clear); Bilirubin, Urine Neg (Neg); Blood, Urine 5+ (Neg); Color, Urine Yellow (P-Yellow); Glucose Qualitative, Urine Neg (Neg); Ketones, Urine Neg (Neg); Leukocyte Esterase, Urine Neg (Neg); Nitrite, Urine Neg (Neg); Protein, Urine 2+ (Neg); Specific Gravity, Urine 1.025 (1.003-1.022); Urobilinogen, Urine 1+ (Normal)
[2021-09-30 15:39] LABS: Amorphous Light (0-Heavy); Bacteria Mod /hpf; Mucus Light (0-Heavy); Red Blood Cells, Urine TNTC /hpf (0-2); Squamous Epithelial Cells Rare /hpf (Few)
[2021-09-30 15:40] LABS: Renal Epithelial Few /hpf (0-Rare)
[2021-09-30 15:41] LABS: Granular Casts 0-2 /lpf (0); Hyaline Casts 0-2 /lpf (0-2)
--- NOTE | 2021-09-30 17:40 | NUR ---
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 LS DIMINSHED, SATS 98% ON RA, NO SOB, BP 108/8O, DENIES CP, PACER. POOR TO NO APPETITE FOR 2 WEEKS, MALNUTRIENTEND, SUNKEN ABD, LAST BM UNKNOWN, ENLARGED PROSTATE, UA SENT, VOIDED ONLY 40 ML, UNSUCESSFUL STRIAGHT CATH ATTEMPTS IN ER. SKIN FRAGILE, PICTURES IN FOLDER, PALLIATIVE CARE WORKING WITH FAMILY, POSSIBLE CHNAGE TO COMFORT CARE
--- NOTE | 2021-09-30 19:49 | NUR ---
pt frail kps score is 20% review of prognosis with phsycian plan is to call grandson with update on his pneumonia. Grandson understanding but grieving. He will call family to discuss comfort measures. 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 will continue to support.
--- NOTE | 2021-10-01 07:40 | NUR ---
ASSUMPTION OF CARE RECEIVED REPORT FROM LOUIS HOLT, ASSUMED CARE OF PATIENT. PATIENT IN BED WITH EYES CLOSED. NO S/S OF DISTRESS. VITALS STABLE ON ROOM AIR. WILL REVIEW ORDERS AND TREAT PRESCRIBED.
--- NOTE | 2021-10-01 18:06 | NUR ---
SHIFT SUMMARY PATIENT WITHOUT ACUTE EVENTS DURING SHIFT. REMAINED STABLE ON ROOM AIR. DIET CHANGED TO PUREED WITH THICKENED LIQUIDS, REQUIRED FEEDING EACH MEAL. GRANDSON VISITED AT BEDSIDE. WILL CONTINUE TO MONITOR AND REPORT TO ONCOMING RN.
--- NOTE | 2021-10-01 19:00 | NUR ---
ASSUMED CARE OF PT, HE IS NOTED RESTING QUIETLY RECLINING IN BED AND APPEARS TO BE SLEEPING, CALL LIGHT IS VISIBLE WITHIN REACH HOWEVER OFFGOING RN REPORTS THAT PT CALLS OUT RATHER THAN USING CALL LIGHT. WILL PLAN TO INCREASE ROUNDING FOR PT SAFETY.
--- NOTE | 2021-10-02 06:28 | NUR ---
PT RESTS QUIETL THROUGHOUT NOC, IV ACCESS TO LEFT WRIST NOTED TO BE LEAKING FROM HUB CONNECTION SITE AND DRESSING CHANGED EARLY IN SHIFT AND HUB TIGHTENED. PT TOLERATED WELL, SITE WAS ABLE TO BE FLUSHED FOLLOWING THIS. WITH 0600 FLAGYL ADMINISTRATION IV HUB WAS NOTED LOOSE AGAIN AND WITH ATTEMPT TO TIGHTEN RESULTED IN IV DC'D, CATH INTACT. NEW IV AFTER 3 TOTAL INSERTION ATTEMPTS BY 2 SEPARATE RNS PT TOLERATED WELL. DISCUSSED PT'S HYDRATION STATUS WITH DR HARRIS THIS AM AND NEW ORDER OBTAINED FOR IVF X 1 LITER AT 75 ML/HR
--- NOTE | 2021-10-02 09:35 | NUR ---
ASSUMED CARE OF PT, REPORT RCV'D FROM JONATHON العراقي. PT ALERT TO SELF, SITUATION, AND LOCATION. OCCASIONALLY CONFUSED BUT EASILY REORIENTED, SLURRED SPEECH. 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 PT ABLE TO SWALLOW PILLS WITH APPLESAUCE, SPEECH THERAPY ASSESSING, PT CLEARED FOR PUREE DIET WITH THIN LIQUIDS, PT APPEARS TO BE KEEPING FOOD IN THE LEFT SIDE OF HIS CHEEK. PT HAS VERY LITTLE APPETITE, PER PT THIS IS NORMAL FOR HIM. VSS AT THIS TIME. SEE FULL SHIFT ASSESSMENT.
--- NOTE | 2021-10-02 10:38 | NUR ---
PT'S GRANDSON LILIANE ([phone]) UPDATED WITH PT'S STATUS AND PLAN OF CARE.
--- NOTE | 2021-10-02 17:08 | NUR ---
PATIENT CAME UP TO THE FLOOR FROM ICU AT APROX 5PM. HE IS ON PRECAUTIONS FOR COVID. PATIENT IS ON PUREE DIET, BUT REFUSES TO EAT PER REPORT. HE CAN TOLERATE THIN LIQUIDS AND MEDS CAN BE WHOLE IN APPLE SAUCE. PATIENT IS MALNOURISHED AND IS THIN. 42.4KG DIET IS PUREE AND HE IS A FEEDER. WE SHOULD HOLD MEAL IF PATIENT IS LETHARGIC HE IS DYSPHAGISA PRECAUTION. PATIENT STATES SOME DISCOMFORT IN ABDOMEN AREA, TOUCHING HIS LOW ABDOMEN. HE IS ABLE TO USE THE URINAL. ICU REPORTS SMALL OUTPUT. PNEUMONIA IS PRESENT WITH THE COVID, BILATERAL. ROOM AIR. HISTORY OF COPD, EMPHYSEMA, PULMONARY FIBROSIS, HTN, CKD STATGE 3, BPH. ICU REPORTS THAT HIS LEFT FACE SEEMS TO BE DROOPING WHICH IS NEW FOR HIM. PATIENT LIVES IN ASSISTED LIVING AT [place] WITH HIS SERA, AND WANTS TO GO HOME.
[2021-10-02 17:29] LABS: Influenza A, PCR NEGATIVE (NEGATIVE); Influenza B, PCR NEGATIVE (NEGATIVE); Resp Syncytial Virus, PCR NEGATIVE (NEGATIVE)
--- NOTE | 2021-10-02 18:12 | NUR ---
AFTER PATIENT CAME TO FLOOR, HE BEGAN TO SAY HIS ABDOMEN HURT. ICU HAD SAID THAT HE WAS ONLY URINATING SMALL AMT. SO WE DID A BLADDER SCAN WHICH WAS SHOWN TO HAVE OVER 900CC OF URINE. ORDER FOR CATH OBTAINED. QUDAY PLACED, WITH RESISTANCE BUT SUCCESSFUL. URING DRAINAGE BAG IMMEDIATELY BEGINS TO FILL OVER 800. COLOR IS DARK TEA, WITH SOME BLOOD, CLOTS CAME OUT FIRST. A SAMPLE WAS COLLECTED AND SENT TO THE LAB.
[2021-10-02 18:18] LABS: Source, Urine Foley catheter
[2021-10-02 18:33] LABS: Appearance, Urine Clear (Clear); Bilirubin, Urine Neg (Neg); Blood, Urine 5+ (Neg); Color, Urine Yellow (P-Yellow); Glucose Qualitative, Urine Neg (Neg); Ketones, Urine Neg (Neg); Leukocyte Esterase, Urine 1+ (Neg); Nitrite, Urine Neg (Neg); Protein, Urine Neg (Neg); Specific Gravity, Urine 1.015 (1.003-1.022); Urobilinogen, Urine NORM (Normal)
[2021-10-02 18:38] LABS: Red Blood Cells, Urine 25-50 /hpf (0-2)
[2021-10-02 18:39] LABS: Bacteria Few /hpf; Squamous Epithelial Cells Rare /hpf (Few)
[2021-10-02 19:03] LABS: SARS-Cov-2 (COVID-19) PCR, MMC POSITIVE (NEGATIVE)
--- NOTE | 2021-10-03 03:36 | NUR ---
SHIFT SUMMARY PT ALERT TO SELF AND FAMILY. DURING CHANGE OF SHIFT PT YELLING FOR AND ASKING WHERE SHE IS. PER REPORT PT IS CONFUSED AND HAS SLURRED SPEECH AT TIMES. PT TURNED Q2H AND BILAT. HEEL PROTECTORS PLACED. PT WITH PRIOR POSITVE COVID TEST AND TEST DONE WHILE INPATIENT CAME BACK POSITIVE. PT ON ISOLATION. NATH PLACED BY PRIOR SHIFT AND NOTED WITH DARK URINE. PER REPORT PT HAD CLOTS IN URINE D/T TRAUMA SECONDARY TO INSERTION. PT SLEPT THROUGHOUT THE NIGHT.
[2021-10-03 05:47] LABS: BASOPHILS ABSOLUTE AUTO 0.01 K/mm3 (0.00-0.23); BASOPHILS PERCENT AUTO 0 % (0-2); EOSINOPHILS PERCENT AUTO 0 % (0-6); Hematocrit 40.6 % (37.0-53.0); Hemoglobin 12.5 g/dL (13.5-17.5); IMMATURE GRAN ABSOLUTE AUTO 0.08 K/mm3 (0.00-0.10); IMMATURE GRAN PERCENT AUTO 1 % (0-1); LYMPHOCYTES ABSOLUTE AUTO 0.47 K/mm3 (0.84-5.20); LYMPHOCYTES PERCENT AUTO 5 % (21-46); MONOCYTES ABSOLUTE AUTO 0.35 K/mm3 (0.16-1.47); MONOCYTES PERCENT AUTO 3 % (4-13); Mean Corpuscular HGB 31.1 pg (26.0-34.0); Mean Corpuscular HGB Conc 30.8 g/dL (31.5-36.5); Mean Corpuscular Volume 101 fL (80-100); Mean Platelet Volume 11.1 fL (9.1-12.4); NEUTROPHILS ABSOLUTE AUTO 9.39 K/mm3 (1.96-9.15); NEUTROPHILS PERCENT AUTO 91 % (41-73); Platelet Count 188 K/mm3 (150-400); RDW Coefficient Variation 13.9 % (11.7-14.2); RDW Standard Deviation 51.9 fL (35.1-46.3); Red Blood Cell Count 4.02 M/mm3 (4.30-5.90)
[2021-10-03 06:14] LABS: Magnesium, Blood 2.3 mg/dL (1.6-2.4)
[2021-10-03 06:15] LABS: Albumin, Blood 2.4 g/dL (3.4-5.0); Anion Gap 6 mmol/L (6-16); Blood Urea Nitrogen 48 mg/dL (8-24); Bun/Creatinine Ratio 50.3 (12.0-20.0); CO2, Blood 27 mmol/L (21-32); Calcium, Blood 9.4 mg/dL (8.5-10.1); Chloride, Blood 115 mmol/L (98-108); Creatinine, Blood 0.96 mg/dL (0.60-1.20); Glomerular Filtration Rate 77 (60-); Glucose, Blood 102 mg/dL (70-99); Phosphorus, Blood 3.3 mg/dL (2.5-4.9); Potassium, Blood 4.7 mmol/L (3.5-5.5); Sodium, Blood 148 mmol/L (136-145)
--- NOTE | 2021-10-03 17:27 | NUR ---
SHIFT SUMMARY PT AXO TO SELF. SELAWIK AND COOPERATIVE WITH CARE. VSS. ON RA. ASPIRATION PRECAUTIONS AND FEEDER. INCREASING APPETITE THIS SHIFT. PT HAD SMALL SMEAR BM THIS SHIFT. PT SLEEPING THROUGHOUT THE SHIFT WHEN NOT EATING OR HAVING CARE DONE. BED IN LOW POSITION, CALL LIGHT WITHIN REACH. PT DENIES PAIN THOUGH MOANS WITH REPOSITIONING. MEPILEX TO COCCYX FOR PREVENTION. FOAM ON HEELS. HEATING PAD IN PLACE FOR PT COMFORT HE STATES THAT HE IS COLD.
--- NOTE | 2021-10-04 04:09 | NUR ---
PROVIDED BLANKED FROM WARMER, PER PT REQUEST. PLACED MUSIC ON VIA TV CHANNEL, PER PT REQUEST. PT TOLERATED PO FLUIDS.
[2021-10-04 05:16] LABS: BASOPHILS ABSOLUTE AUTO 0.01 K/mm3 (0.00-0.23); BASOPHILS PERCENT AUTO 0 % (0-2); EOSINOPHILS PERCENT AUTO 0 % (0-6); IMMATURE GRAN ABSOLUTE AUTO 0.09 K/mm3 (0.00-0.10); IMMATURE GRAN PERCENT AUTO 1 % (0-1); LYMPHOCYTES ABSOLUTE AUTO 0.46 K/mm3 (0.84-5.20); LYMPHOCYTES PERCENT AUTO 4 % (21-46); MONOCYTES PERCENT AUTO 5 % (4-13); Mean Corpuscular Volume 100 fL (80-100); Mean Platelet Volume 10.8 fL (9.1-12.4); NEUTROPHILS ABSOLUTE AUTO 10.45 K/mm3 (1.96-9.15); NEUTROPHILS PERCENT AUTO 90 % (41-73); Platelet Count 175 K/mm3 (150-400); RDW Coefficient Variation 13.9 % (11.7-14.2); RDW Standard Deviation 50.6 fL (35.1-46.3); Red Blood Cell Count 4.19 M/mm3 (4.30-5.90); White Blood Cell Count 11.61 K/mm3 (4.00-11.30)
[2021-10-04 05:45] LABS: Bun/Creatinine Ratio 46.6 (12.0-20.0); Calcium, Blood 9.4 mg/dL (8.5-10.1); Creatinine, Blood 1.03 mg/dL (0.60-1.20); Potassium, Blood 4.4 mmol/L (3.5-5.5)
--- NOTE | 2021-10-04 06:12 | NUR ---
SHIFT SUMMARY - NO ACUTE CHANGES THROUGHOUT THIS SHIFT. PT WAS MORE ALERT THIS AM, USING HIS CALL LIGHT, REQUESTING PO FLUIDS AND REPOSITIONING, TV ASSIST, ETC. PT ABLE TO ASSIST WITH TURNING BY GRABBING THE SIDE RAIL. PILLS CRUSHED AND PLACED IN APPLESAUCE, HOB 90 FOR MEDS/PO FLUIDS. TKO IV FLUIDS INFUSING WITHOUT DIFFICULTY TO RIC IV SITE. KPAD TO PT'S UPPER BACK. ONE 1/4 DIME SIZE CLOT IN NATH URINE COLLECTION BAG. MEPILEX TO LEFT ELBOW. PT IS VERY FRAIL. CALL LIGHT WITHIN REACH. BED IN LOW POSITION. PT IS A FEEDER.
[2021-10-04] MEDS ORDERED: LEVOFLOXACIN250 M1 PO (11:16)
[2021-10-04] MEDS ORDERED: DECADRON6 M1 PO (11:16)
[2021-10-04] MEDS ORDERED: CEROVITE PO (11:17)
[2021-10-04] MEDS ORDERED: B-1100 M1 PO (11:18)
--- NOTE | 2021-10-04 13:29 | NUR ---
PATIENT DISCHARGED TO [facility], PICKED UP BY PAKO MOMIN. IV SALINE LOCK REMOVED WITHOUT INCIDENT. DISCHARGED WITH NATH CATHETER, IS TO FOLLOW UP WITH PCP NEXT WEEK. DRESSED IN DISPOSABLE SCRUBS HIS PERSONAL CLOTHING WAS SOILED. OFF UNIT AT 1315 VIA W/C. NO PERSONAL BELONGINGS LEFT BEHIND IN ROOM.
== END 2021-10-04 13:11 | disposition home or self-care (01) | DRG 871 ==
LOC: ER 23:32 → ICUW 09-30 03:02 → ERHOLD 09-30 03:02 → ICUW 09-30 03:54 → MEDS 10-02 16:53
PROVIDERS: Family Medicine; Internal Medicine; Student in an Organized Health Care Education/Training Program; ADMIT Internal Medicine
PROC: XW033E5 Introduction of Remdesivir Anti-infective into Peripheral Vein, Percutaneous Approach, New Technology Group 5 (ICD-10-PCS; principal; 2021-09-30)
PROC: 3E03329 Introduction of Other Anti-infective into Peripheral Vein, Percutaneous Approach (ICD-10-PCS; 2021-09-30)
PROC: 3E0333Z Introduction of Anti-inflammatory into Peripheral Vein, Percutaneous Approach (ICD-10-PCS; 2021-09-30)
PROC: XW0DXM6 Introduction of Baricitinib into Mouth and Pharynx, External Approach, New Technology Group 6 (ICD-10-PCS; 2021-09-30)
PROC: 8E0ZXY6 Isolation (ICD-10-PCS; 2021-09-30)
DX: A41.89 Other specified sepsis (principal); U07.1 COVID-19; J12.82 Pneumonia due to coronavirus disease 2019; E43 Unspecified severe protein-calorie malnutrition; J96.01 Acute respiratory failure with hypoxia; N17.9 Acute kidney failure, unspecified; E87.0 Hyperosmolality and hypernatremia; Z68.1 Body mass index [BMI] 19.9 or less, adult; R64 Cachexia; K21.9 Gastro-esophageal reflux disease without esophagitis; Z66 Do not resuscitate; M19.90 Unspecified osteoarthritis, unspecified site; I12.9 Hypertensive chronic kidney disease with stage 1 through stage 4 chronic kidney disease, or unspecified chronic kidney disease; N18.9 Chronic kidney disease, unspecified; Z86.73 Personal history of transient ischemic attack (TIA), and cerebral infarction without residual deficits; G47.00 Insomnia, unspecified; Z98.890 Other specified postprocedural states; Z96.652 Presence of left artificial knee joint; Z88.0 Allergy status to penicillin; Z79.82 Long term (current) use of aspirin
CPT/HCPCS: 0241U; 36415; 71045; 76770; 80048; 80053; 80069; 81001; 83605; 83735; 84145; 84484; 85025; 87040; 87086; 92526; 92610; 93005; 93010; 96374; 96375; 97110; 97161; 97530; 99285-25; A9270; J0248; J0456; J0696; J1100; J1650; J7030; J7040; J7042; J7050